=== PATIENT | male | born 1980 | race Caucasian/White ===

== ENCOUNTER 2017-10-02 10:10 | Day surgery (SDC) | payer BC ==
[2017-09-30 12:34] VITALS: BMI 30.2
[2017-10-02] MEDS ORDERED: oxyCODONE HCL 10 MG SUSTAINED ACTING TABLET PO STA (10:21)
[2017-10-02] MEDS ORDERED: methylPREDNISolone ACET (DEPO) 40 MG/1 ML VIAL ONE (11:14)
[2017-10-02] MEDS ORDERED: BUPIVACAINE HCL/PF 2.5 MG/ML - 30 ML VIAL IJ ONE (11:15)
[2017-10-02] MEDS ORDERED: DEXAMETHASONE SOD PHOSPHATE/PF 10 MG/ML SDV ONE (11:18)
[2017-10-02] MEDS ORDERED: BUPIVACAINE HCL/PF (5 MG/ML) 30 ML VIAL IJ ONE (11:18)
[2017-10-02] MEDS ORDERED: BUPIVACAINE HCL/PF 0.5% (5MG/ML) 10 ML VIAL ONE (11:51)
[2017-10-02] MEDS ORDERED: MIDAZOLAM HCL 2 MG/2 ML SINGLE DOSE VIAL ONE ×3 (11:52→13:08)
[2017-10-02] MEDS ORDERED: ceFAZolin SODIUM 1 GM VIAL ONE (12:06)
[2017-10-02] MEDS ORDERED: GUM MASTIC/STORAX/MSAL/ALCOHOL 1 DRP DROPSBTL MC ONE (13:17)
[2017-10-02] MEDS ORDERED: ONDANSETRON 4 MG/2 ML VIAL IVPUSH PRN (13:35)
[2017-10-02] MEDS ORDERED: LACTATED RINGERS SOLUTION 1,000 ML IV SCH (13:45)
--- NOTE | 2017-10-02 13:51 | HP ---
History & Physical Update - History History: No Change - Physical Physical: No Change - Assessment Assessment: No Change - Plan Plan: No Change
--- NOTE | 2017-10-02 13:53 | OP ---
Operative Note - Note: Operative Date: 10/02/17 Pre-Operative Diagnosis: L3/4 herniated disc, spinal stenosis, radiculopathy Operation: L3/4 discectomy, bilateral laminectomy Post-Operative Diagnosis: Same as Pre-op Surgeon: Yosvany Hawthorne Die Cut Operator: Lam Neff Anesthesiologist/KEYLINER: Nirav Chacon Anesthesia: Spinal Specimens Removed: L3/4 disc Estimated Blood Loss (mls): 25 Fluid Volume Replaced (mls): 1,000 Operative Report Dictated: Yes
--- NOTE | 2017-10-02 13:54 | SURG ---
Surgery Pull Over Machine Operator Note Pull Over Machine Operator: Lam Neff PA-C Date of Service: 10/02/17 Diagnosis: L3/4 spinal stenosis, herniated disc, radiculopathy Procedure: L3/4 laminectomy (bilateral), discectomy I was present for the entirety of the operative procedure. For further detail, please refer to operative report. Visit type - Case Type Case Type: Scheduled Admission - New patient This patient is new to me today: Yes Date on this admission: 10/02/17
[2017-10-02] MEDS ORDERED: HYDROmorphone HCL CARPU-JECT 1 MG/1 ML DISP.SYRIN ONE (14:34)
[2017-10-02] MEDS ORDERED: ONDANSETRON 4 MG/2 ML VIAL ONE (14:35)
[2017-10-02] MEDS ORDERED: HYDROmorphone HCL CARPU-JECT 1 MG/1 ML DISP.SYRIN IVPUSH ONE (14:39)
[2017-10-02 15:43] VITALS: PULSE 84; TEMP 99
[2017-10-02] MEDS ORDERED: oxyCODONE HCL 10 MG SUSTAINED ACTING TABLET ONE (15:51)
[2017-10-02] MEDS ORDERED: oxyCODONE HCL 5 MG TABLET ONE ×2 (15:53→16:38)
[2017-10-02 17:05] VITALS: BP 126/84
--- NOTE | 2017-10-03 14:41 | OP ---
DATE OF OPERATION: 10/02/2017 PREOPERATIVE DIAGNOSIS: L3-4 spinal stenosis. POSTOPERATIVE DIAGNOSIS: L3-4 spinal stenosis. PROCEDURE PERFORMED: L3-4 laminectomy. SURGEON: Yosvany Hawthorne MD COMBUSTION ANALYST: NINA Dietrich ESTIMATED BLOOD LOSS: 50 mL INTRAVENOUS FLUIDS: Per Anesthesia. ANESTHESIA: Spinal. COMPLICATIONS: None. DISPOSITION: Patient was brought to PACU in stable condition. INDICATIONS FOR SURGERY: The patient is a 37-year-old gentleman who has been suffering from pain from his back down his leg. X-rays and MRI were completed which noted that he had spinal stenosis at L3-4 secondary to a herniated disk. He had gone through an exhaustive course of treatment for this, which included medications, physical therapy as well as injections. Unfortunately, his pain continued to persist despite all this. At this point, risks, benefits, and alternatives were discussed, and the patient consented to surgery. DESCRIPTION OF PROCEDURE: The patient was brought to the operating room by the OR staff. After appropriate patient identification was performed, spinal anesthesia was given. He was placed prone onto the OR table with all areas of bony prominences well padded at this time. Two needles were placed in his back to gerald off the L3-L4 section. X-ray was taken to confirm this as correct. [place] were removed, and 10 mL of lidocaine with epinephrine were injected in his back at this time. His back was prepped and draped in a sterile manner. At this point, a timeout was completed. An incision was made from the top of L3 down to the bottom of L4. Dissection was carried down to the fascia. Fascia was then split open at this time, and the appropriate retractors were then placed in. A spinal needle was placed onto the L3 level to gerald off the L3-4 level. An x-ray was taken to confirm this as correct. The needle was removed, and the interspinous ligament at L3-4 was removed. The microscope was brought in. Portions of the L3 and L4 lamina were removed. The flavum was removed. A thorough decompression was performed such that by the end of the procedure, the L4 nerve root appeared to be well decompressed. The thecal sac was mobilized medially, and disk herniation was noted. It was removed at this time. By the end of the procedure, the L4 nerve root appeared to be well decompressed. All bleeding was well controlled at this time. Steroid was placed over the nerve root. FloSeal was placed over that. The fascia was closed with a No. 1 Vicryl suture. Subcutaneous tissues were closed with 2-0 Vicryl suture. Skin was closed with 3-0 Monocryl suture. Dermabond was applied. Steri-Strips were applied. A sterile dressing was applied. Patient was placed supine on the OR bed and brought to the PACU in stable condition. Catarino MORALES/[id number]
--- NOTE | 2017-10-06 11:43 | PATH ---
Surgical Pathology Report Patient Name: SONYA BAKER Med. Rec. #: [id number] /Age/Gender: 1980 (Age: 37) / M Account: [id number] Location: [facility] Taken: 10/02/2017 Received: 10/02/2017 Reported: 10/06/2017 Physicians: Yosvany Hawthorne M.D. Specimen(s) Received L 3-4 DISC Clinical History Preoperative diagnosis: Spinal stenosis Final Diagnosis INTERVERTEBRAL DISC, L3-4, PARTIAL EXCISION: PORTIONS OF INTERVERTEBRAL DISC. Electronically Signed Leihgton Lemos M.D. Gross Description Received in formalin labeled "L3-4 disc," is a 2.0 x 1.3 x 0.3 cm aggregate of bello fragments of fibrocartilaginous tissue. A sales representative health insurance portion is submitted in one cassette. 10/03/201710/03/2017
== END 2017-10-02 17:00 | disposition home or self-care (01) ==
LOC: FASU 10:10
PROVIDERS: ATTEND Orthopaedic Surgery Orthopaedic Surgery of the Spine
PROC: 01NB0ZZ Release Lumbar Nerve, Open Approach (ICD-10-PCS; principal; 2017-10-02 12:40)
DX: M48.061 Spinal stenosis, lumbar region without neurogenic claudication (principal)
CPT/HCPCS: 72110-TC; 88304-TC; 94760

== ENCOUNTER 2018-05-07 10:57 | Day surgery (SDC) | payer BC ==
[2018-05-06 11:50] VITALS: BMI 31.7
--- NOTE | 2018-05-07 07:29 | HP ---
History & Physical Update - History History: No Change - Physical Physical: No Change - Assessment Assessment: No Change - Plan Plan: No Change (Initial H&P is located in patient's paper chart. No new medications or complaints.)
[~2018-05-07 10:57] MED LIST: oxyCODONE HCL 10 MG SUSTAINED ACTING TABLET PO STA
[2018-05-07] MEDS ORDERED: DEXAMETHASONE SOD PHOSPHATE/PF 10 MG/ML SDV ONE (12:02)
[2018-05-07] MEDS ORDERED: BUPIVACAINE HCL/PF 2.5 MG/ML - 30 ML VIAL IJ ONE (12:03)
[2018-05-07] MEDS ORDERED: BUPIVACAINE HCL/PF (5 MG/ML) 30 ML VIAL IJ ONE (12:03)
[2018-05-07] MEDS ORDERED: MIDAZOLAM HCL 2 MG/2 ML SINGLE DOSE VIAL ONE ×3 (12:03→13:54)
[2018-05-07] MEDS ORDERED: THROMBIN (BOVINE) 5,000 UNIT VIAL TP ONE ×2 (12:18→13:58)
[2018-05-07] MEDS ORDERED: LIDOCAINE 1%/EPI 1:100000 (20 ML MULTI DOSE VIAL) ONE (12:18)
[2018-05-07] MEDS ORDERED: methylPREDNISolone ACET (DEPO) 40 MG/1 ML VIAL ONE (12:18)
[2018-05-07] MEDS ORDERED: ONDANSETRON 4 MG/2 ML VIAL ONE (12:48)
[2018-05-07] MEDS ORDERED: ceFAZolin SODIUM 1 GM VIAL ONE ×2 (12:48→13:20)
[2018-05-07] MEDS ORDERED: LIDOCAINE HCL/PF 2% SDV 5ML VIAL ONE (12:48)
[2018-05-07] MEDS ORDERED: LIDOCAINE 1%/EPI 1:100000 (50 ML MULTI DOSE VIAL) INF ONE (13:20)
[2018-05-07] MEDS ORDERED: GELATIN SPONGE,ABSORBABLE 1 GM PACKET TP ONE (13:59)
[2018-05-07] MEDS ORDERED: methylPREDNISolone ACET (DEPO) 40 MG/1 ML VIAL IM ONE (14:21)
[2018-05-07] MEDS ORDERED: ONDANSETRON 4 MG/2 ML VIAL IVPUSH PRN (14:22)
[2018-05-07] MEDS ORDERED: oxyCODONE HCL 5 MG TABLET PO PRN (14:22)
[2018-05-07] MEDS ORDERED: LACTATED RINGERS SOLUTION 1,000 ML IV SCH (14:30)
--- NOTE | 2018-05-07 14:52 | OP ---
Operative Note - Note: Operative Date: 05/07/18 Pre-Operative Diagnosis: L3/4 herniated disc with radiculopathy Operation: L3/4 left discectomy Post-Operative Diagnosis: Same as Pre-op Surgeon: Yosvany Hawthorne Department Editor: Lam Neff Anesthesiologist/DIETITIAN: Estela Reyes Anesthesia: Spinal Specimens Removed: Left L3/4 disc Estimated Blood Loss (mls): 30 Fluid Volume Replaced (mls): 800 Operative Report Dictated: Yes
--- NOTE | 2018-05-07 14:53 | SURG ---
Surgery Dock Pumper Note Dock Pumper: Lam Neff PA-C Date of Service: 05/07/18 Diagnosis: L3/4 herniated disc Procedure: L3/4 discectomy I was present for the entirety of the operative procedure. For further detail, please refer to operative report. Visit type - Case Type Case Type: Scheduled - New patient This patient is new to me today: Yes Date on this admission: 05/07/18
--- NOTE | 2018-05-07 15:35 | OP ---
DATE OF OPERATION: 05/07/2018 PREOPERATIVE DIAGNOSIS: Lumbar stenosis, L3-4. PREOPERATIVE DIAGNOSIS: Lumbar stenosis, L3-4. PROCEDURE PERFORMED: Revision laminectomy, L3-4. SURGEON: Yosvany Hawthorne M.D. B2B SALES PROFESSIONAL: Carol Dietrich ESTIMATED BLOOD LOSS: 50 mL INTRAVENOUS FLUIDS: Per anesthesia. ANESTHESIA: Spinal/TLIP. COMPLICATIONS: There were none. DISPOSITION: Patient brought to the PACU in stable condition. INDICATION FOR SURGERY: The patient is a 37-year-old gent who has been suffering from pain from his back down his legs. X-rays and MRI were completed, which noted he has a re-herniation at L3-4. It appears he had a lumbar diskectomy, for which he did well. He had an epidural injection, but unfortunately his pain continued to persist in spite of all this. At this point, risks, benefits, and alternatives were discussed and the patient consented to surgery. OPERATIVE NOTE: Patient is brought to the operating room by the anesthesia staff. After appropriate patient identification is performed, spinal anesthesia and TLIP block was given. The patient was able to position himself prone onto the OR table. Two needles were placed into his back to gerald off the L3-L4 segment, and x-ray is taken to confirm this is correct. [place] were removed, and 10 mL of lidocaine with epinephrine was injected into his back at this time. His back was prepped and draped in a sterile manner. At this point timeout was completed. An incision was made from the top of L3 down to the bottom of L4. Dissection was carried down to the fascia. Fascia was then split open at this time, and appropriate retractors were then placed in. A spinal needle was placed onto the L3 lamina to gerald off the L3-4 space. An x-ray was taken to confirm this was correct. The needle was removed, and microscope was brought in. At this point, a portion of the L3-L4 spinous process was removed, and portions of the L3-L4 lamina were removed. The segment identified, it was removed. Scar tissue was identified, it was removed. The nerve root was mobilized medially. The disk herniation was noted and it was removed at this time. By the end of the procedure, the L4 nerve root appeared to be well decompressed. All bleeding was well controlled at this time. Steroids were placed over the nerve root, Floseal was placed over that. The fascia was closed with a number 1 Vicryl suture. The subcutaneous tissue was closed with 2-0 Vicryl suture. Skin was closed with 3-0 Monocryl suture. Dermabond was applied. Steri-Strips were applied. Sterile dressing was applied. Patient was placed supine on OR bed, and brought to the PACU in stable condition. Catarino MORALES/[id number]
[2018-05-07] MEDS ORDERED: oxyCODONE HCL 5 MG TABLET ONE (15:52)
[2018-05-07 17:37] VITALS: BP 122/74; PULSE 75; TEMP 98.1
--- NOTE | 2018-05-12 09:54 | PATH ---
Surgical Pathology Report Patient Name: SONYA BAKER [facility]. Rec. #: [id number] /Age/Gender: 1980 (Age: 37) / M Account: [id number] Location: [facility] Taken: 05/07/2018 Received: 05/07/2018 Reported: 05/12/2018 Physicians: Yosvany Hawthorne M.D. Specimen(s) Received L3-4 DISC Clinical History Spinal stenosis Final Diagnosis L3-4 DISC, LAMINECTOMY: CARTILAGE WITH DEGENERATIVE CHANGES. Electronically Signed Lucille Santana M.D. Gross Description Received in formalin labeled "L3-4 disc," is a 1.7 x 1.6 x 0.3 cm aggregate of bello fragments of fibrocartilaginous tissue. The specimen is entirely submitted in one cassette. /05/08/201805/08/2018
== END 2018-05-07 17:00 | disposition home or self-care (01) ==
LOC: FASU 10:57
PROVIDERS: ATTEND Orthopaedic Surgery Orthopaedic Surgery of the Spine
PROC: 01NB0ZZ Release Lumbar Nerve, Open Approach (ICD-10-PCS; principal; 2018-05-07 09:45)
DX: M48.061 Spinal stenosis, lumbar region without neurogenic claudication (principal)
CPT/HCPCS: 72100-TC-FY; 88304-TC; 94760